=== PATIENT | male | born 1970 | race Caucasian/White ===

== ENCOUNTER → 2021-10-13 | Outpatient (CLI) | payer SELFPAY ==
[~2021-10-13] MED LIST: ALLO300 PO; AMLO5 PO; ASPI81CH; ASPI81CH PO; Acyclovir800 MG PO; Atenolol50 MG PO; CIPR750 PO; DOXY100 PO; IBUP600 PO; LORA1 PO; ONDA4ODT MM; PROC10 PO; Sulfamethoxazo1 EAC4 PO
== END | disposition home or self-care (01) ==
LOC: LAB 14:01 → LAB SHORT 14:01
DX: E53.8 Deficiency of other specified B group vitamins (principal)
CPT/HCPCS: 82607; 82746